=== PATIENT | male | born 1975 | race American Indian/Alaskan Native ===

== ENCOUNTER 2020-01-10 16:00 | Emergency (ER) | payer OTHER ==
[2020-01-10 16:31] VITALS: BP 117/73
--- NOTE | 2020-01-10 17:47 | Emergency Department Report ---
- General Chief Complaint: Skin/Abscess/Foreign Body Stated Complaint: LUMP ON GROIN AREA Source: patient Mode of arrival: Ambulatory Limitations: No Limitations - Related Data Allergies Allergy/AdvReac Type Severity Reaction Status Date / Time No Known Allergies Allergy Verified 01/10/20 16:26 ED Review of Systems ROS: Stated complaint: LUMP ON GROIN AREA Other details as noted in HPI ED Past Medical Hx - Past Medical History Previous Medical History?: No - Surgical History Past Surgical History?: No - Social History Smoking Status: Current Every Day Smoker Substance Use Type: Marijuana ED Physical Exam - General Limitations: No Limitations ED Course Vital Signs 01/10/20 16:30 Temperature 98.2 F Pulse Rate 76 Respiratory 16 Rate Blood Pressure 117/73 O2 Sat by Pulse 97 Oximetry Critical care attestation.: If time is entered above; I have spent that time in minutes in the direct care of this critically ill patient, excluding procedure time. ED Disposition Condition: Stable
--- NOTE | 2020-01-10 17:53 | Emergency Department Report ---
Abscess Boil HPI - HPI Chief Complaint: Skin/Abscess/Foreign Body Stated Complaint: LUMP ON GROIN AREA Duration: 3 Days Location: Other (Groin) History: Yes Pain, No Fever, No Purulent Drainage, No Numbness, No Foreign Body, No Previous History, No Insect Bite HPI: 44-year-old -[place] male presents to the emergency room stating he has a lump to his groin x3 days. Patient denies any penile discharge no fevers no chills no urinary frequency. Patient denies any past medical history takes no medications on a daily basis and has no known drug allergies. Home Medications: Previous Rx's Medication Instructions Recorded Last Taken Type Ibuprofen [Motrin 600 MG tab] 600 mg PO Q8H PRN #15 tablet 01/10/20 Unknown Rx cephALEXin [Keflex] 500 mg PO Q12HR 7 Days #14 cap 01/10/20 Unknown Rx Allergies/Adverse Reactions: Allergies Allergy/AdvReac Type Severity Reaction Status Date / Time No Known Allergies Allergy Verified 01/10/20 16:26 ED Review of Systems ROS: Stated complaint: LUMP ON GROIN AREA Other details as noted in HPI Comment: All other systems reviewed and negative ED Past Medical Hx - Past Medical History Previous Medical History?: No - Surgical History Past Surgical History?: No - Social History Smoking Status: Current Every Day Smoker Substance Use Type: Marijuana - Medications Home Medications: Home Medications Medication Instructions Recorded Confirmed Last Taken Type Ibuprofen [Motrin 600 MG tab] 600 mg PO Q8H PRN #15 tablet 01/10/20 Unknown Rx cephALEXin [Keflex] 500 mg PO Q12HR 7 Days #14 cap 01/10/20 Unknown Rx ED Abscess Boil Physical Exam - Exam General: Vital signs noted. No distress. Alert and acting appropriately. Size: 2 cm Exam: Yes Tenderness, Yes Normal Neurologic Exam, Yes Normal Circulation, No Fluctuance, No Surrounding Cellulites/Erythema, No Lymphangitis, No Crepitation, No Heart Murmur ED Course Vital Signs 01/10/20 16:30 Temperature 98.2 F Pulse Rate 76 Respiratory 16 Rate Blood Pressure 117/73 O2 Sat by Pulse 97 Oximetry Critical care attestation.: If time is entered above; I have spent that time in minutes in the direct care of this critically ill patient, excluding procedure time. ED Medical Decision Making - Medical Decision Making 44-year-old -[place] male presents to the emergency room stating he has a lump to his groin x3 days. Patient denies any penile discharge no fevers no chills no urinary frequency. Patient denies any past medical history takes no medications on a daily basis and has no known drug allergies. Patient does not need incision and drain at this time. Discussed with patient we will place him on antibiotics and pain medication he can continue using warm compresses. Patient verbalized understanding ED Disposition Clinical Impression: Boil of penis Disposition: DC- TO HOME OR SELFCARE Is pt being admited?: No Does the pt Need Aspirin: No Condition: Stable Instructions: Furunculosis and Carbunculosis (ED) Additional Instructions: Complete antibiotics as prescribed. Pain medication as needed. You can use [id number] chlorhexidine or the bottle may say surgical cleanser. Follow- up with your primary care provider if you have any further concerns. Prescriptions: cephALEXin [Keflex] 500 mg PO Q12HR 7 Days #14 cap Ibuprofen [Motrin 600 MG tab] 600 mg PO Q8H PRN #15 tablet PRN Reason: Pain Referrals: PRIMARY CARE, [Primary Care Provider] - 3-[address] [facility] [Provider Group] - 3-5 Days Forms: Work/School Release Form(ED)
== END 2020-01-10 18:14 | disposition home or self-care (01) ==
LOC: ED 16:00
DX: N48.21 Abscess of corpus cavernosum and penis (principal); F17.200 Nicotine dependence, unspecified, uncomplicated; F12.10 Cannabis abuse, uncomplicated; Z79.1 Long term (current) use of non-steroidal anti-inflammatories (NSAID); Z79.899 Other long term (current) drug therapy
CPT/HCPCS: 99282